=== PATIENT | male | born 1995 | race African-American/Black ===

== ENCOUNTER → 2020-09-19 | Outpatient (CLI) | payer MEDICAID ==
[2020-09-20 15:30] LABS: Hepatitis A Ab IgM Negative; Hepatitis B Core IgM Negative; Hepatitis B Surface Antigen Negative (Negative)
== END | disposition home or self-care (01) ==
LOC: LAB 10:08
PROVIDERS: ATTEND Nurse Practitioner Family
DX: Z11.3 Encounter for screening for infections with a predominantly sexual mode of transmission (principal); N39.0 Urinary tract infection, site not specified; R30.0 Dysuria
CPT/HCPCS: 36415; 80074; 86592; 86703; 87086

== ENCOUNTER → 2021-02-12 | Emergency (ER) | payer MEDICAID ==
[~2021-02-12] VITALS: Ht 172.7 cm; Wt 68.0 kg
[2021-02-12 09:07] VITALS: BP 142/91
[2021-02-12 10:20] LABS: Urine Bacteria NONE SEEN /hpf (None Seen); Urine Blood Negative /uL (Negative); Urine Hyaline Cast FEW /lpf (0 - 2); Urine Mucus FEW (None Seen); Urine Specific Gravity 1.031 (1.001-1.035); Urine WBC 188 /hpf (0 - 3)
== END | disposition left against medical advice (07) ==
LOC: ER 09:02
DX: R30.9 Painful micturition, unspecified (principal); Z53.21 Procedure and treatment not carried out due to patient leaving prior to being seen by health care provider
CPT/HCPCS: 81001

== ENCOUNTER 2022-12-05 21:03 | Emergency (ER) | payer MEDICAID | END 2022-12-05 21:09 | disposition left against medical advice (07) | LOC: ER 21:03 | DX: R52 Pain, unspecified (principal); Z53.21 Procedure and treatment not carried out due to patient leaving prior to being seen by health care provider ==